=== PATIENT | male | born 1960 | race African-American/Black ===

== ENCOUNTER 2023-05-28 10:28 | Inpatient (IN) | payer BC, OTHER ==
[~2023-05-28] VITALS: Ht 177.8 cm; Wt 142.5 kg
[2023-05-28 11:35] LABS: Basophils # (auto) 0 10 ^3/uL (0-0.2); Basophils % (auto) 0.1 % (0.0-2.0); Eosinophils # (auto) 0 10 ^3/uL (0-0.8); Eosinophils % (auto) 0.2 % (0.0-7.0); Hematocrit 45.8 % (41.0-53.0); Hemoglobin 14.9 g/dL (13.5-17.5); Lymphocytes # (auto) 1.2 10 ^3/uL (0.4-5.4); Lymphocytes % (auto) 5.4 % (10.0-50.0); Mean Corpuscular Hemoglobin 29.7 pg (28.0-32.0); Mean Corpuscular Hgb Conc. 32.6 g/dL (32.0-36.0); Mean Corpuscular Volume 91.3 fL (80.0-100.0); Monocytes # (auto) 1.4 10 ^3/uL (0-1.3); Monocytes % (auto) 6.2 % (0.0-12.0); Neutrophils # (auto) 19.9 10 ^3/uL (1.6-8.6); Neutrophils % (auto) 88.1 % (37.0-80.0); Nucleated Red Blood Cells % 0.1 %; Red Blood Cells 5.01 10^6/uL (4.5-5.90); Red Cell Distribution Width 14.3 % (11.8-14.3); White Blood Cell 22.6 10^3/uL (4.4-10.8)
[2023-05-28 11:51] LABS: Urine Bacteria NONE SEEN /hpf (None Seen); Urine Blood Negative /uL (Negative); Urine Clarity Clear (Clear); Urine Color Yellow (Yellow); Urine Hyaline Cast FEW /lpf (0 - 2); Urine Mucus FEW (None Seen); Urine Protein, UAD Negative (Negative); Urine Specific Gravity 1.026 (1.001-1.035); Urine Urobilinogen Normal (Negative); Urine WBC 26 /hpf (0 - 3)
[2023-05-28 11:57] LABS: Alanine Aminotransferase 44 U/L (7-40); Albumin 4.2 g/dL (3.2-4.8); Alkaline Phosphatase 102 U/L (46-116); Anion Gap 14 (5-15); Aspartate Aminotransferase 27 U/L (13-40); BUN/Creatinine Ratio 13.3 (10.0-20.0); Blood Urea Nitrogen 31 mg/dL (9-23); Calcium 9.3 mg/dL (8.7-10.4); Carbon Dioxide 22 mmol/L (20-30); Chloride 92 mmol/L (98-107); Magnesium 1.9 mg/dL (1.6-2.6); Sodium 128 mmol/L (136-145)
[2023-05-28 11:58] LABS: Bilirubin, Total 1.4 mg/dL (0.2-1.0); Total Protein 7.5 g/dL (5.7-8.2)
[2023-05-28 12:08] LABS: Glucose 587 mg/dL (74-106); Potassium 5.7 mmol/L (3.5-5.1)
[2023-05-28] MEDS ORDERED: DEXTROSE (50%) 50ML SYRG IV PRN ×3 (12:30→23:15)
[2023-05-28] MEDS ORDERED: INSULIN LANTUS (GLARGINE) 1 /0.01ml (100units/ml) SC ONE (12:30)
[2023-05-28] MEDS ORDERED: INSULIN DRIP 100 UNIT/100ML 100 ML IV SCH (12:30)
[2023-05-28] MEDS ORDERED: SODIUM CHLORIDE 0.9% 1,000 ML IV ONE (12:30)
[2023-05-28] MEDS ORDERED: ALBUTEROL SULF 2.5 MG/0.5ML(0.5%) NEB SOLN NEB ONE (12:30)
[2023-05-28] MEDS ORDERED: PIPERACILLIN-TAZOB 3.375GM 100 ML IV ONE (12:30)
[2023-05-28] MEDS ORDERED: FUROSEMIDE 20 MG/2 ML VIAL IV ONE (12:30)
[2023-05-28] MEDS ORDERED: CALCIUM GLUC 1,000mg/50ml-NS 50 ML IV ONE (12:30)
[2023-05-28] MEDS ORDERED: MORPHINE SULFATE INJ 2 MG/ml SYRG IV PRN (13:15)
[2023-05-28] MEDS ORDERED: ACETAMINOPHEN 325 MG TAB PO PRN (13:15)
[2023-05-28] MEDS ORDERED: cefTRIAXone 1GM/50ML D5W 50 ML IV ONE (13:15)
[2023-05-28] MEDS ORDERED: NITROGLYCERIN 0.4 MG SL TAB SL PRN (13:15)
[2023-05-28] MEDS: SODIUM CHLORIDE 0.9% 1,000 ML IV SCH ×4 (13:15→23:24)
[2023-05-28] MEDS ORDERED: METF-371 PO (13:24)
[2023-05-28] MEDS ORDERED: NEOMOIN TOP (13:24)
[2023-05-28] MEDS ORDERED: ENAL5TAB22 PO (13:24)
[2023-05-28] MEDS ORDERED: ACET-6 PO (13:24)
[2023-05-28] MEDS ORDERED: CLOP75TA70 PO (13:24)
[2023-05-28] MEDS ORDERED: PRAV20TA3 PO (13:24)
[2023-05-28] MEDS ORDERED: ATEN25TA PO (13:24)
[2023-05-28] MEDS ORDERED: FLUO0.02 TOP (13:24)
[2023-05-28] MEDS: ACCU-CHEK COMFORT CURVE STRIP VI SCH ×6 (13:30→23:51)
[2023-05-28 13:53] LABS: Protein, Urine 11.3 mg/dL (0.0-11.9)
[2023-05-28 13:55] LABS: Creatinine, Urine 95.13 mg/dL (30.0-125.0)
[2023-05-28 15:51] LABS: Triglycerides 94 mg/dL (< 150)
[2023-05-28 15:52] LABS: LDL Cholesterol 47 mg/dL (< 100)
[2023-05-28 15:53] LABS: Cholesterol 129 mg/dL (< 200); HDL Cholesterol 60 mg/dL (40-59)
[2023-05-28 16:26] VITALS: PULSE 91; RESP 20; O2SAT 96
[2023-05-28] MEDS ORDERED: InsuLIN REG 1unit/0.01ml Soln (100units/ml) SC SCH ×2 (17:00→22:00)
[2023-05-28] MEDS ORDERED: ONDANSETRON HCL 4 MG/2 ML VIAL IV PRN (18:15)
[2023-05-28 20:10] VITALS: PULSE 86; RESP 18; O2SAT 98
[2023-05-28] MEDS: InsuLIN REG 1unit/0.01ml Soln (100units/ml) SC SCH (23:57)
[2023-05-29] MEDS ORDERED: ACCU-CHEK COMFORT CURVE STRIP VI SCH
[2023-05-29] MEDS: ACCU-CHEK COMFORT CURVE STRIP VI SCH ×5 (04:15→21:51)
[2023-05-29] MEDS: InsuLIN REG 1unit/0.01ml Soln (100units/ml) SC SCH ×5 (04:20→21:53)
[2023-05-29 05:17] LABS: Basophils # (auto) 0 10 ^3/uL (0-0.2); Basophils % (auto) 0.2 % (0.0-2.0); Eosinophils # (auto) 0.2 10 ^3/uL (0-0.8); Eosinophils % (auto) 1.6 % (0.0-7.0); Hematocrit 42.1 % (41.0-53.0); Hemoglobin 13.7 g/dL (13.5-17.5); Lymphocytes # (auto) 1.5 10 ^3/uL (0.4-5.4); Mean Corpuscular Hemoglobin 29.3 pg (28.0-32.0); Mean Corpuscular Hgb Conc. 32.6 g/dL (32.0-36.0); Mean Corpuscular Volume 89.7 fL (80.0-100.0); Monocytes # (auto) 1.3 10 ^3/uL (0-1.3); Monocytes % (auto) 8.3 % (0.0-12.0); Neutrophils # (auto) 12.1 10 ^3/uL (1.6-8.6); Neutrophils % (auto) 79.9 % (37.0-80.0); Red Blood Cells 4.69 10^6/uL (4.5-5.90); Red Cell Distribution Width 13.8 % (11.8-14.3); White Blood Cell 15.2 10^3/uL (4.4-10.8)
[2023-05-29 05:44] LABS: Alanine Aminotransferase 30 U/L (7-40); Albumin 3.8 g/dL (3.2-4.8); Alkaline Phosphatase 95 U/L (46-116); Anion Gap 10 (5-15); Aspartate Aminotransferase 20 U/L (13-40); BUN/Creatinine Ratio 16.9 (10.0-20.0); Blood Urea Nitrogen 28 mg/dL (9-23); Calcium 8.9 mg/dL (8.7-10.4); Carbon Dioxide 24 mmol/L (20-30); Chloride 100 mmol/L (98-107); Potassium 3.7 mmol/L (3.5-5.1)
[2023-05-29 05:45] LABS: Bilirubin, Total 0.8 mg/dL (0.2-1.0); Total Protein 7.1 g/dL (5.7-8.2)
[2023-05-29 05:52] LABS: Glucose 258 mg/dL (74-106); Sodium 134 mmol/L (136-145)
[2023-05-29] MEDS: SODIUM CHLORIDE 0.9% 1,000 ML IV SCH ×3 (08:47→19:35)
[2023-05-29] MEDS: cefTRIAXone 1GM/50ML D5W 50 ML IV SCH (08:47)
[2023-05-29] MEDS: CLOPIDOGREL BISULFATE 75 MG TAB PO SCH (10:50)
[2023-05-29] MEDS: PRAVASTATIN SODIUM 20 MG TAB PO SCH (10:50)
[2023-05-29] MEDS: ATENOLOL 25 MG TAB PO SCH (11:05)
[2023-05-29] MEDS ORDERED: INSULIN LANTUS (GLARGINE) 1 /0.01ml (100units/ml) SC ONE (15:15)
[2023-05-29 19:30] VITALS: PULSE 75; RESP 18; O2SAT 98
[2023-05-29 20:45] VITALS: PULSE 80; RESP 16; O2SAT 96
[2023-05-29] MEDS: INSULIN LANTUS (GLARGINE) 1 /0.01ml (100units/ml) SC SCH (22:00)
[2023-05-30] VITALS (7 sets, daily range): BP systolic 145–153; BP diastolic 82–93; PULSE 68–102; RESP 16–20; TEMP 97.6–98.5; O2SAT 94–97
[2023-05-30] MEDS: InsuLIN REG 1unit/0.01ml Soln (100units/ml) SC SCH ×6 (00:18→22:10)
[2023-05-30] MEDS: ACCU-CHEK COMFORT CURVE STRIP VI SCH ×6 (00:20→20:00)
[2023-05-30] MEDS: SODIUM CHLORIDE 0.9% 1,000 ML IV SCH ×3 (03:55→12:20)
[2023-05-30] MEDS: CLOPIDOGREL BISULFATE 75 MG TAB PO SCH (09:57)
[2023-05-30] MEDS: cefTRIAXone 1GM/50ML D5W 50 ML IV SCH (09:57)
[2023-05-30] MEDS: ATENOLOL 25 MG TAB PO SCH (09:58)
[2023-05-30] MEDS: PRAVASTATIN SODIUM 20 MG TAB PO SCH (09:58)
[2023-05-30] MEDS: INSULIN LANTUS (GLARGINE) 1 /0.01ml (100units/ml) SC SCH (22:10)
[2023-05-31] VITALS (8 sets, daily range): BP systolic 95–140; BP diastolic 50–89; PULSE 70–97; RESP 18–22; TEMP 97.8–98.3; O2SAT 98–100
[2023-05-31] MEDS: ACCU-CHEK COMFORT CURVE STRIP VI SCH ×6 (01:00→21:44)
[2023-05-31] MEDS: InsuLIN REG 1unit/0.01ml Soln (100units/ml) SC SCH ×6 (01:03→21:58)
[2023-05-31] MEDS: SODIUM CHLORIDE 0.9% 1,000 ML IV SCH ×4 (01:04→23:57)
[2023-05-31 06:47] LABS: Alanine Aminotransferase 31 U/L (7-40); Alkaline Phosphatase 83 U/L (46-116); Anion Gap 5 (5-15); BUN/Creatinine Ratio 11.4 (10.0-20.0); Blood Urea Nitrogen 15 mg/dL (9-23); Carbon Dioxide 26 mmol/L (20-30); Chloride 106 mmol/L (98-107); Glucose 165 mg/dL (74-106); Magnesium 1.8 mg/dL (1.6-2.6); Potassium 4.1 mmol/L (3.5-5.1); Sodium 137 mmol/L (136-145)
[2023-05-31 06:48] LABS: Albumin 3.3 g/dL (3.2-4.8); Aspartate Aminotransferase 36 U/L (13-40); Bilirubin, Total 0.4 mg/dL (0.2-1.0); Total Protein 6.2 g/dL (5.7-8.2)
[2023-05-31] MEDS: PRAVASTATIN SODIUM 20 MG TAB PO SCH (09:02)
[2023-05-31] MEDS: ATENOLOL 25 MG TAB PO SCH (09:03)
[2023-05-31] MEDS: CLOPIDOGREL BISULFATE 75 MG TAB PO SCH (09:06)
[2023-05-31] MEDS: cefTRIAXone 1GM/50ML D5W 50 ML IV SCH (09:06)
[2023-05-31] MEDS ORDERED: LEVO500T91 PO (13:06)
[2023-05-31] MEDS ORDERED: GLIM4TAB42 PO ×2 (13:06)
[2023-05-31] MEDS ORDERED: METF-372 PO (13:06)
[2023-05-31] MEDS: INSULIN LANTUS (GLARGINE) 1 /0.01ml (100units/ml) SC SCH (21:58)
[2023-06-01] VITALS (7 sets, daily range): BP systolic 116–131; BP diastolic 72–86; PULSE 72–92; RESP 17–22; TEMP 36.8; O2SAT 95–99
[2023-06-01] MEDS: InsuLIN REG 1unit/0.01ml Soln (100units/ml) SC SCH ×6 (01:42→21:08)
[2023-06-01] MEDS: ACCU-CHEK COMFORT CURVE STRIP VI SCH ×6 (01:42→20:57)
[2023-06-01] MEDS: cefTRIAXone 1GM/50ML D5W 50 ML IV SCH (09:05)
[2023-06-01] MEDS: SODIUM CHLORIDE 0.9% 1,000 ML IV SCH ×2 (11:30→19:03)
[2023-06-01] MEDS: CLOPIDOGREL BISULFATE 75 MG TAB PO SCH (11:38)
[2023-06-01] MEDS: ATENOLOL 25 MG TAB PO SCH (11:39)
[2023-06-01] MEDS: PRAVASTATIN SODIUM 20 MG TAB PO SCH (11:39)
[2023-06-01] MEDS ORDERED: DOCU-94 PO (16:31)
== END 2023-06-01 21:06 | disposition home or self-care (01) | DRG 871 ==
LOC: ER 10:28 → TELE 13:18 → TELE-WESTW 05-29 13:18
PROVIDERS: ADMIT Nurse Practitioner Family; ATTEND Nurse Practitioner Acute Care
DX: A41.9 Sepsis, unspecified organism (principal); E11.10 Type 2 diabetes mellitus with ketoacidosis without coma; E87.1 Hypo-osmolality and hyponatremia; N17.9 Acute kidney failure, unspecified; Z68.42 Body mass index [BMI] 45.0-49.9, adult; E66.01 Morbid (severe) obesity due to excess calories; E78.5 Hyperlipidemia, unspecified; E87.5 Hyperkalemia; B96.1 Klebsiella pneumoniae [K. pneumoniae] as the cause of diseases classified elsewhere; E11.22 Type 2 diabetes mellitus with diabetic chronic kidney disease; E86.0 Dehydration; I12.9 Hypertensive chronic kidney disease with stage 1 through stage 4 chronic kidney disease, or unspecified chronic kidney disease; N30.90 Cystitis, unspecified without hematuria; N18.2 Chronic kidney disease, stage 2 (mild); R55 Syncope and collapse; Z91.148 Patient's other noncompliance with medication regimen for other reason; Z86.73 Personal history of transient ischemic attack (TIA), and cerebral infarction without residual deficits; Z71.3 Dietary counseling and surveillance
CPT/HCPCS: 36415; 36600; 70450; 70551; 71045; 76775; 80053; 80061; 81001; 82010; 82306; 82570; 82805; 82962; 83036; 83605; 83735; 83880; 83930; 83970; 84100; 84132; 84156; 84300; 84443; 84484; 84702; 85025; 87040; 87086; 87088; 87186; 94640; 96372; G0378; J0696; J1815; J2405